=== PATIENT | male | born 2000 | race Caucasian/White ===

== ENCOUNTER 2024-02-21 18:58 | Emergency (ER) | payer BC, SELFPAY ==
[2024-02-21 19:03] VITALS: BP 180/78; PULSE 104; TEMP 36.8; O2SAT 99; BMI 25.0
--- NOTE | 2024-02-21 19:11 | XR_ITS ---
[facility] [id number] Patient Name: BIRD CUELLAR MRN: [id number] date: 2000 Sex: M Assigned Patient Location: ER Current Patient Location: ER Accession/Order Number: [id number] Exam Date: 02/21/2024 19:17 Report Date: 02/21/2024 21:18 At the request of: LILLIAN MCCARTHY Procedure: XR hand RT min 3V EXAM: XR hand RT min 3V HISTORY: pain COMPARISON: None. TECHNIQUE: 3 views of the right hand FINDINGS: Patient is post sideplate and multiple screws fixation of the metacarpal. Acute fracture of the distal fifth metacarpal is seen with mild volar angulation of distal fracture fragment. Joint alignment is normal. Joint spaces are preserved. Soft tissue swelling is seen. XR/XR hand RT min 3V IMPRESSION: Acute angulated distal fifth metacarpal fracture. Electronically authenticated by: MCKAY GREENBERG Date: 02/21/2024 21:18
--- NOTE | 2024-02-21 20:36 | ED_ITS ---
HPI HPI - Extremity Injury (Upper) General Chief Complaint: Extremity Injury, Upper Stated Complaint: Upper Extremity Injury Time Seen by Provider: 02/21/24 19:24 Source: patient Mode of arrival: walk-in History of Present Illness HPI narrative: Patient is a [id number] 23-year-old male who presents to the emergency department for an injury to the right hand that occurred 3 days ago at home. 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 He complains of pain over the fifth metacarpal. He does have previous fracture to the fifth metacarpal that was surgically corrected with hardware remaining in the hand. He states he felt a pop at the time of injury and has had continued pain and swelling over the area. Limited range of motion to the fingers of the right hand. No medications taken prior to arrival. He has an orthopedic appointment in 2 days. Related Data Home Medications ?Medication ?Instructions ?Recorded ?Confirmed methimazole 5 mg tablet 5 mg PO Q8H 02/21/24 02/21/24 propranolol 10 mg tablet 10 mg PO BID 02/21/24 02/21/24 Previous Rx's ?Medication ?Instructions ?Recorded hydrocodone 5 mg-acetaminophen 325 1 tab PO Q6H PRN pain 3 days #12 02/21/24 mg tablet tabs Allergies Allergy/AdvReac Type Severity Reaction Status Date / Time No Known Drug Allergies Allergy Verified 02/21/24 19:09 Opioid HPI Opioid Management Most Recent Pain and Opioid Data: Last Pain Scale 7 02/21/24 20:45 02/21/24 Last ED Pain Assessment 02/21/24 20:45 Review of Systems ROS Constitutional Denies: fever or chills Ears, nose, mouth, and throat Denies: throat pain or nasal congestion Respiratory Denies: shortness of breath Gastrointestinal Denies: nausea or vomiting Musculoskeletal Denies: back pain, neck pain, extremity pain or extremity swelling Neurological Denies: numbness in extremities or weakness in extremities Hematologic/Lymphatic Denies: easy bruising or easy bleeding PFSH PFSH Social History Little interest or pleasure in doing things: not at all Feeling down, depressed, or hopeless: not at all Exam Narrative Exam Narrative: Gen.: Awake, alert, in no distress Head: Normocephalic, atraumatic ENT: Moist mucous membranes Respiratory: No respiratory distress Extremities: Limited flexion and extension of the fourth and fifth fingers of the right hand due to pain. Diffuse tenderness with well-healed surgical scar over the right fifth metacarpal. Superficial well-healing abrasions over the dorsum of the hand. No bony tenderness of the right wrist with 2+ right radial pulse. Psych: Normal mood and affect Neuro: No focal neuro deficit Skin: Warm, dry, intact Constitutional Vital Signs, click to edit/add: Last Vital Signs Temp 98.3 F 02/21/24 19:03 Pulse 104 H 02/21/24 19:03 BP 180/78 H 02/21/24 19:03 Pulse Ox 99 02/21/24 19:03 O2 Del Method Room Air 02/21/24 19:03 Course Vital Signs Vital signs: Vital Signs Temperature 98.3 F 02/21/24 19:03 Pulse Rate 104 H 02/21/24 19:03 Blood Pressure 180/78 H 02/21/24 19:03 Pulse Oximetry 99 02/21/24 19:03 Oxygen Delivery Method Room Air 02/21/24 19:03 Temperature 98.3 F 02/21/24 19:03 Pulse Rate 104 H 02/21/24 19:03 Blood Pressure 180/78 H 02/21/24 19:03 Pulse Oximetry 99 02/21/24 19:03 Oxygen Delivery Method Room Air 02/21/24 19:03 MDM - Extremity Injury (Upper) MDM Narrative Medical decision making narrative: X-ray reviewed by the radiologist with an acute angulated fracture of the right fifth metacarpal. Patient declined pain medication in the ER. An ulnar gutter splint was applied by attending physician and the patient remains neurovascularly intact pre and post splint application. Sling was applied as well prior to discharge. Patient sent with a short course of analgesics and a work note. He has an orthopedic appointment this week already scheduled. Return to the ER if symptoms change or worsen. Rest, ice, elevate. SHARED APC VISIT, PHYSICIAN ATTESTATION: [id number] I performed a substantive part of the MDM during the patient?s E/M visit. I personally evaluated and examined the patient. I personally made or approved the documented management plan and acknowledge its risk of complications. Medical Records Attestation: I reviewed the patient's medical records. Imaging Data XR hand: Attestation: I have reviewed the pertinent imaging results. Radiologist's impression: ITS Impressions Hand X-Ray 02/21/24 19:11 IMPRESSION: Acute angulated distal fifth metacarpal fracture. Electronically authenticated by: MCKAY GREENBERG Date: 02/21/2024 21:18 Discharge Plan Discharge Chief Complaint: Extremity Injury, Upper Clinical Impression: Fracture of fifth metacarpal bone of right hand Patient Disposition: Home, Self-Care Time of Disposition Decision: 21:33 Condition: Good Prescriptions / Home Meds: New hydrocodone-acetaminophen 5-325 mg tablet 1 tab PO Q6H PRN (Reason: pain) 3 Days Qty: 12 0RF Rx Instructions: DX: M79.641 No Action methimazole 5 mg tablet 5 mg PO Q8H propranolol 10 mg tablet 10 mg PO BID Print Language: Estonian Instructions: Hand Fracture (ED) Additional Instructions: Follow up with orthopedics as scheduled Referrals: Bud Thompson MD [Primary Care Provider] - 1 week
== END 2024-02-21 22:19 | disposition home or self-care (01) ==
PROVIDERS: Emergency Provider Emergency Medicine; PCP Family Medicine
DX: S62.306A Unspecified fracture of fifth metacarpal bone, right hand, initial encounter for closed fracture (principal); W23.0XXA Caught, crushed, jammed, or pinched between moving objects, initial encounter
CPT/HCPCS: 29125; 73130; 99283